=== PATIENT | female | born 1960 | race Caucasian/White ===

== ENCOUNTER 2019-04-13 14:10 | Emergency (ER) | payer BC, SELFPAY ==
--- NOTE | 2019-04-13 14:39 | XR_ITS ---
XR chest 2V HISTORY: ITS.REASON: SOA ORDERING PHYSICIAN: FREDY Pavon PATIENT AGE: 58 years COMPARISON: None FINDINGS: The cardiomediastinal silhouette and pulmonary vascularity are within normal limits. The lungs are clear without infiltrates, suspicious nodules, or pleural effusions. No acute bony abnormalities. IMPRESSION: Negative chest, no acute finding
[2019-04-13 14:40] VITALS: BP 139/88; PULSE 81; RESP 20; TEMP 37.6; O2SAT 96; BMI 39.9
--- NOTE | 2019-04-13 15:31 | HMH.EDUTC ---
[facility] [place] Clinical Impression: RLL pneumonia Qualifiers: Pneumonia type: due to unspecified organism Qualified Code(s): J18.1 - Lobar pneumonia, unspecified organism Disposition: Home, Self-Care Condition on Discharge: Good Instructions: Pneumonia-Adult Prescriptions: Brompheniramine/Pseudoephed/Dm [Bromfed DM Cough Syrup 5mL] 5 - 10 ml PO Q6HP PRN 10 Days #240 ml PRN Reason: Cough levoFLOXacin [Levaquin 500mg tab] 500 mg PO DAILY #10 tab predniSONE [Prednisone 20mg Tab] 20 mg PO BID 5 Days #10 tab Referrals: Provider,Referral, MD [Primary Care Provider] - Time of Disposition: 15:34 Medical Decision Making - [place] Inquiry Pt receiving controlled substance: No Vital Signs: 04/13/19 14:40 Temperature 99.7 F H Temperature Source Oral Pulse Rate [Right Radial] 81 Respiratory Rate 20 Blood Pressure [Right Arm] 139/88 Blood Pressure Mean [Right Arm] 105 Blood Pressure Source [Right Arm] Automatic Cuff Blood Pressure Position [Right Arm] Sitting 02 Sat by Pulse Oximetry 96 Oxygen Delivery Method Room Air Orders (Tests/Meds): ORDERS Category Date Time Status Chest XR 2 view (NOT portable) [XR chest 2V] Stat Exams 04/13/19 14:39 Taken - Radiology Data #1 Image(s): Chest Image Reviewed: Yes I reviewed the patient's radiology image Preliminary Findings: Abnormal (RLL infiltrate) [facility] [place] - General Stated complaint: Fever, Cough, Ear ache, sore throat Time Seen by Provider: 04/13/19 14:45 Mode of Arrival: Ambulatory Source of Information: Patient Limitations: No Limitations Description of Symptoms (Recalled from Triage Doc. by RN): C/O COUGH THAT IS CAUSING SORENESS IN HER DIAPHRAGM, EAR PAIN, SORE THROAT AND DUDLEY HEENT Symptoms (Recalled from RN notes): Yes (EAR PAIN, SORE THROAT, DUDLEY) Resp Symptoms (Recalled from RN notes): Yes (COUGH) Skin Symptoms (Recalled from RN notes): No MS Symptoms (Recalled from RN notes): No Functional Status (Recalled from RN notes): N/A - History of Present Illness Provider Complaint: Patient has been sick X 1 week. Has ear pain, sore throat, cough and congestion. Saw PCP earlier this week - is on Omnicef. Has had fever 102 past three nights despite meds. Coughing so hard she has pain in her diaphragm. Onset (ago): week(s) (1) Location: chest Relieving factors: none Exacerbating factors: none Associated symptoms: cough, fever/chills, malaise Treatments prior to arrival: other (Omnicef) - Related Data Previous Rx's Medication Instructions Recorded Brompheniramine/Pseudoephed/Dm 5 - 10 ml PO Q6HP PRN 10 Days #240 04/13/19 [Bromfed DM Cough Syrup 5mL] ml levoFLOXacin [Levaquin 500mg 500 mg PO DAILY #10 tab 04/13/19 tab] predniSONE [Prednisone 20mg 20 mg PO BID 5 Days #10 tab 04/13/19 Tab] - Worker's Comp Is this a Worker's Comp case?: No [facility] History - Hepatitis A Screen Drug use history?: No High risk sexual behaviors?: No History of sexually transmitted infection?: No Currently employed?: No Childcare worker?: No Do you have indoor plumbing?: Yes Do you have electricity?: Yes Attestation statement:: This patient has been screened for Hepatitis A risk factors. I have reviewed the patient's past medical history: Yes Medical History: Reports:: Diabetes Mellitus Type 2 - Social History Smoking Status: Never smoker Alcohol Intake: never Occupational Status: employed, retired - Psychiatric History Expresses thoughts of harming self/others: None Suicide Plan Description: No Plan ROS Obtained: Yes All systems reviewed & no additional complaints - Constitutional Constitutional: Reports body ache, Reports chills, Reports fatigue, Reports fever(s), Reports headache(s), Reports malaise - ENT Ears, Nose, Mouth, and Throat: Reports headache(s), Reports sore throat - Respiratory Respiratory: Yes cough Physical Exam - General General appearance: alert, in no apparent distress - Head Head exam:
--- NOTE | 2019-04-13 15:34 | ED_ITS ---
[facility] [place] Disposition Clinical Impression: RLL pneumonia Qualifiers: Pneumonia type: due to unspecified organism Qualified Code(s): J18.1 - Lobar pneumonia, unspecified organism Disposition: Home, Self-Care Condition on Discharge: Good Instructions: Pneumonia-Adult Prescriptions: Brompheniramine/Pseudoephed/Dm [Bromfed DM Cough Syrup 5mL] 5 - 10 ml PO Q6HP PRN 10 Days #240 ml PRN Reason: Cough levoFLOXacin [Levaquin 500mg tab] 500 mg PO DAILY #10 tab predniSONE [Prednisone 20mg Tab] 20 mg PO BID 5 Days #10 tab Referrals: Provider,Referral, MD [Primary Care Provider] - Time of Disposition: 15:34 Medical Decision Making - [place] Inquiry Pt receiving controlled substance: No Vital Signs: 04/13/19 14:40 Temperature 99.7 F H Temperature Source Oral Pulse Rate [Right Radial] 81 Respiratory Rate 20 Blood Pressure [Right Arm] 139/88 Blood Pressure Mean [Right Arm] 105 Blood Pressure Source [Right Arm] Automatic Cuff Blood Pressure Position [Right Arm] Sitting 02 Sat by Pulse Oximetry 96 Oxygen Delivery Method Room Air Orders (Tests/Meds): ORDERS Category Date Time Status Chest XR 2 view (NOT portable) [XR chest 2V] Stat Exams 04/13/19 14:39 Taken - Radiology Data #1 Image(s): Chest Image Reviewed: Yes I reviewed the patient's radiology image Preliminary Findings: Abnormal (RLL infiltrate) [facility] [place] HPI - General Stated complaint: Fever, Cough, Ear ache, sore throat Time Seen by Provider: 04/13/19 14:45 Mode of Arrival: Ambulatory Source of Information: Patient Limitations: No Limitations Description of Symptoms (Recalled from Triage Doc. by RN): C/O COUGH THAT IS CAUSING SORENESS IN HER DIAPHRAGM, EAR PAIN, SORE THROAT AND DUDLEY HEENT Symptoms (Recalled from RN notes): Yes (EAR PAIN, SORE THROAT, DUDLEY) Resp Symptoms (Recalled from RN notes): Yes (COUGH) Skin Symptoms (Recalled from RN notes): No MS Symptoms (Recalled from RN notes): No Functional Status (Recalled from RN notes): N/A - History of Present Illness Provider Complaint: Patient has been sick X 1 week. Has ear pain, sore throat, cough and congestion. Saw PCP earlier this week - is on Omnicef. Has had fever 102 past three nights despite meds. Coughing so hard she has pain in her diaphragm. Onset (ago): week(s) (1) Location: chest Relieving factors: none Exacerbating factors: none Associated symptoms: cough, fever/chills, malaise Treatments prior to arrival: other (Omnicef) - Related Data Previous Rx's Medication Instructions Recorded Brompheniramine/Pseudoephed/Dm 5 - 10 ml PO Q6HP PRN 10 Days #240 04/13/19 [Bromfed DM Cough Syrup 5mL] ml levoFLOXacin [Levaquin 500mg 500 mg PO DAILY #10 tab 04/13/19 tab] predniSONE [Prednisone 20mg 20 mg PO BID 5 Days #10 tab 04/13/19 Tab] - Worker's Comp Is this a Worker's Comp case?: No [facility] [place] History - Hepatitis A Screen Drug use history?: No High risk sexual behaviors?: No History of sexually transmitted infection?: No Currently employed?: No Childcare worker?: No Do you have indoor plumbing?: Yes Do you have electricity?: Yes Attestation statement:: This patient has been screened for Hepatitis A risk factors. I have reviewed the patie
[2019-04-13 15:38] VITALS: BP 139/88; PULSE 81; RESP 20; TEMP 37.6; O2SAT 96
== END 2019-04-13 15:39 | disposition home or self-care (01) ==
PROVIDERS: Emergency Provider Physician Assistant
DX: J18.1 Lobar pneumonia, unspecified organism (principal)
CPT/HCPCS: 71046; 99201